=== PATIENT | female | born 1980 | race Caucasian/White ===

== ENCOUNTER 2016-07-20 21:48 | Emergency (ER) | payer OTHER ==
[~2016-07-20 21:48] MED LIST: OB COMPLETE/DHA PO
--- NOTE | 2016-07-21 00:37 | ED NURSING NOTES ---
Clinical Report - Nurses [facility] [address] [place] [address] 07/20/2016 21:49 Patient: GERALDINE summer TRIAGE Triage time 22:07. Acuity: LEVEL 3. Chief Complaint: CHEST PAIN and (Onset: 1 hour ago, began again when standing; states she has been having dizzy spells the past couple of days. Describes dizziness as "when I look up the room is moving but it comes and goes it does not last."). Alert. No acute distress. SEPSIS SCREEN: Sepsis Screen: negative. Negative (no infection suspected/documented). --22:12 Hadley Stearns R.N. 22:09 07/20/16. BP: 116/81 (regular adult cuff) taken on the left arm, via an automated monitor, while lying. HR: 81 (normal rate). RR: 16 (regular, unlabored and normal). O2 saturation: 96% on room air. Temp: 98.1 F (oral). Pain level now: 12/06. --22:12 Hadley Stearns R.N. Weight: 72.5 kg stated. Height/Length: 63 inches Per Patient. BMI: 28.3. --22:09 Hadley Stearns R.N. Medications None. --22:11 Hadley Stearns R.N. Allergies No Known Drug Allergy. --22:11 Hadley Stearns R.N. Medication/allergy information source: the patient. --22:12 Hadley Stearns R.N. History Arrived by private vehicle. Historian: patient. Accompanied by daughter. Primary physician (None). This started today. She has had central chest pain (Described as a "cramping" pain). Denies radiation of chest pain to the left arm, right arm, neck or back. No associated nausea or vomiting. No chills, fever, sweating episodes or difficulty breathing. She has not had fatigue. Denies muscle aches. 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 PAST MEDICAL HX: Last normal menstrual period- 27 days ago. SOCIAL HX: Never smoker. No alcohol use or drug use. She has not traveled outside the [place] The patient was not exposed to MRSA. No infectious disease exposure. ABUSE ASSESSMENT: Abuse assessment: The patient was asked "Do you feel safe in your home?" and "Has anyone hurt you or threatened to hurt you?". No report of abuse. SELF HARM ASSESSMENT: A self harm assessment was performed. The patient answered "no" to the question "Do you have thoughts of harming or killing yourself?" and "Have you recently had thoughts about harming or killing others?". FALL RISK ASSESSMENT: Fall risk assessment completed. No fall risk identified. NUTRITIONAL RISK ASSESSMENT: The nutritional risk assessment revealed no deficiencies. FUNCTIONAL ASSESSMENT: Functional assessment: no impairments noted. LEARNING NEEDS ASSESSMENT: The learning needs assessment revealed no barriers. SKIN INTEGRITY ASSESSMENT: Skin integrity risk assessment completed. No skin integrity risk identified. --22:12 Hadley Stearns R.N. PROBLEMS: Chest Pain of GI Origin. Tubal . Anxiety Reaction. PVC - Premature Venticular Complex(s). UTI - Urinary Tract Infection. . --22:11 Hadley Stearns R.N. ADDITIONAL SURGERIES: Endoscopy. Laparoscopy. --22:11 Hadley Stearns R.N. Assessment GENERAL / NEURO / PSYCH: Alert. Oriented X 4. Appears in no acute distress. [place] Coma Scale: 15- eyes open spontaneously (4); best verbal response- oriented x 4 (5); best motor response- obeys commands (6). Patient appears calm and cooperative. RESPIRATORY: Respirations not labored. SKIN: Skin is warm and dry. --22:12 Hadley Stearns R.N. Interventions ID band on patient. EKG time: (2200). EKG was ordered, performed by a tech and shown to the ED physician. To treatment room. --22:12 Hadley Stearns R.N. NURSING PROGRESS NOTES The initial plan of care for this patient has been created This plan of care was discussed with the patient. tool specialist, pulse oximeter and NIBP monitor placed on patient; weight inspector- Lead II. Patient gowned. Reassurance given to the patient. Two patient identifiers checked. Call light placed in reach. Side rails up x 1. Bed placed in lowest position. Brakes of bed on. Patient ready for evaluation- ED physician notified. --22:12 Hadley Stearns R.N. 22:15 07/20/16. EKG time: (2200). EKG was performed by a tech and shown to the ED physician. --22:15 Josephmarianela Rachel 22:18 07/20/2016 Site #1 started via IV in the right antecubital space with an 20g angiocath, with aseptic technique and good blood return; one attempt. Blood drawn: rainbow set. Labeled in the presence of the patient and sent to the lab. Saline lock flushed with 10 mL saline. --22:18 Peg Mesa R.N. Patient ID band checked for patient name, birthdate and medical record number: patient confirmed. Instructions provided to collect clean catch urine and patient verbalized understanding urine collected with return of yellow-colored clear urine; sample sent to lab for urinalysis. Specimen labeled in the presence of the patient. The patient is calm and resting quietly. Overall patient status is improved- she states feels better. RESPIRATORY: Denies difficulty breathing. CVS: Denies chest pain. Normal sinus rhythm noted. Cardiac rhythm: normal sinus rhythm. Patient identifiers checked. Call light placed in reach. --22:36 Hilary Javier R.N. 23:01 07/20/16. BP: 98/60. HR: 84 (regular and normal rate). RR: 12. O2 saturation: 100% on room air. Pain level now: 0/10. --23:33 Hilary Javier R.N. Cardiac rhythm: normal sinus rhythm. Reassurance given. Call light placed in reach. --23:33 Hilary Javier R.N. 00:52 07/21/2016 Site #1 removed upon discharge. Catheter intact. Manual pressure and bandaid applied. --00:52 Hilary aJvier R.N. DISPOSITION / DISCHARGE Departure time: 0055 PM. Condition at departure: improved and stable. The goals identified in the patient's plan of care were met. No learning barriers present. Discharge instructions provided and reviewed with the patient. Activity restrictions (rest) reviewed. Patient verbalized understanding. Written instructions provided in Lebanese. No warning instructions, medication instructions, treatment instructions or referrals given to the patient. The patient was discharged by the physician. She was discharged home and accompanied by spouse. She left the Emergency Department ambulatory and via private vehicle. Patient driving. FALL RISK ASSESSMENT: Fall risk assessment completed. No fall risk identified. --00:51 Hilary Javier R.N. 00:45 07/21/16. BP: 98/53. HR: 74. RR: 12. O2 saturation: 100%. Temp: 97.4 F (oral). Pain level now: 0/10. --00:51 Hilary Javier R.N. Locked/Released at 07/21/2016 0:52 by Hilary Javier R.N.
--- NOTE | 2016-07-21 00:37 | ED ORDER SUMMARY ---
..... Patient: STEMICK, SUMMER D OrderSheet [facility] VisitID: [id number] [place] [address] 36y, F Registration Date/Time: 07/20/2016 ORDER SHEET Weight: 72.5 kg (stated) Allergies: No Known Drug Allergy GENERAL ORDERS: CBC w Diff Urgent (22:18 07/20/2016 SRoberts R.N. per protocol) (Ack 22:19 AMcQuoid ER Tech1) (22:37 EHassan R.N.) CMP Urgent (22:18 07/20/2016 SRoberts R.N. per protocol) (Ack 22:19 AMcQuoid ER Tech1) (22:37 EHassan R.N.) UA-Culture if indicated Urgent (22:18 07/20/2016 SRoberts R.N. per protocol) (Ack 22:19 AMcQuoid ER Tech1) (22:37 EHassan R.N.) EKG - ER Stat (22:19 07/20/2016 AMcQuoid ER Tech1 per protocol) (22:19 AMcQuoid ER Tech1) Troponin-I Urgent (23:45 07/20/2016 Brenton Harry) (Ack 23:51 JDeElena R.N.) (23:52 JDeElena R.N.) Chest 2V Urgent (00:22 07/21/2016 Brenton Harry) (Ack 0:24 AMcQuoid ER Tech1) (0:31 GUnger) MEDICATION ORDERS: IV FLUIDS: IV Saline Lock (22:18 07/20/2016 SRoberts R.N. per protocol) (22:18 SRoberts R.N.) ORDER SHEET NOTES: [Electronically signed by Hilary Javier R.N. (00:52 07/21/2016)] [Electronically signed by Roby Gonzalez Dr. (04:14 07/23/2016)] [Electronically locked/signed by Hilary Javier R.N. (00:52 07/21/2016)]
--- NOTE | 2016-07-21 00:37 | ED ORDER SUMMARY ---
..... Patient: STEMICK, SUMMER D OrderSheet [facility] VisitID: [id number] [place] [address] 36y, F Registration Date/Time: 07/20/2016 ORDER SHEET Weight: 72.5 kg (stated) Allergies: No Known Drug Allergy GENERAL ORDERS: CBC w Diff Urgent (22:18 07/20/2016 SRoberts R.N. per protocol) (Ack 22:19 AMcQuoid ER Tech1) (22:37 EHassan R.N.) CMP Urgent (22:18 07/20/2016 SRoberts R.N. per protocol) (Ack 22:19 AMcQuoid ER Tech1) (22:37 EHassan R.N.) UA-Culture if indicated Urgent (22:18 07/20/2016 SRoberts R.N. per protocol) (Ack 22:19 AMcQuoid ER Tech1) (22:37 EHassan R.N.) EKG - ER Stat (22:19 07/20/2016 AMcQuoid ER Tech1 per protocol) (22:19 AMcQuoid ER Tech1) Troponin-I Urgent (23:45 07/20/2016 Brenton Harry) (Ack 23:51 JDeElena R.N.) (23:52 JDeElena R.N.) Chest 2V Urgent (00:22 07/21/2016 Brenton Harry) (Ack 0:24 AMcQuoid ER Tech1) (0:31 GUnger) MEDICATION ORDERS: IV FLUIDS: IV Saline Lock (22:18 07/20/2016 SRoberts R.N. per protocol) (22:18 SRoberts R.N.) ORDER SHEET NOTES: [Electronically signed by Hilary Javier R.N. (00:52 07/21/2016)] [Electronically signed by Roby Gonzalez Dr. (04:14 07/23/2016)] [Electronically locked/signed by Hilary Javier R.N. (00:52 07/21/2016)]
--- NOTE | 2016-07-21 00:37 | ED CLINICAL REPORT ---
Clinical Report - Physicians/Mid Levels [facility] [address] [place] [address] 07/20/2016 21:49 Patient: GERALDINEsummer Time Seen: 0000. Arrived- By private vehicle. Historian- patient. HISTORY OF PRESENT ILLNESS Chief Complaint: CHEST PAIN. At its maximum, severity described as moderate. When seen in the E.D., it was gone. Modifying factors. Not worsened by anything. Not relieved by anything. This started today and is still present but is better now. It was abrupt in onset and has been intermittent but is not gone now. Onset during sleep. It is described as cramping and it is described as located in the central chest area. No radiation. No nausea, vomiting, difficulty breathing or diaphoresis. No additional chest pain. (Got done eating about 40 minutes prior. Pain lasted for several seconds then resolved. Had a few episodes of these.). Similar symptoms previously: None. Recent medical care: Not recently seen/assessed. REVIEW OF SYSTEMS No fever or chills. All systems otherwise negative, except as recorded above. PAST HISTORY See nurses notes. Denies the following risk factors for DVT/PE - history of DVT and pulmonary embolism, recent surgery, recent PR and congestive heart failure. Denies the following risk factors for DVT/PE - cancer, clotting disorder, estrogens, obesity and immobility. Denies the following risk factors for DVT/PE - vena cava filter. SOCIAL HISTORY Never smoker. No alcohol use or drug use. No recent travel. Is a local resident. FAMILY HISTORY No history of heart disease. No family history of premature onset heart disease. ADDITIONAL NOTES The nursing notes have been reviewed. PHYSICAL EXAM Vital Signs: 07/20/2016 22:09 BP: 116/81. HR: 81. RR: 16. O2 saturation: 96%. Temp: 98.1 F. Pain level now: 8/10. Blood pressure normal. Oxygen saturation normal. Appearance: Alert. Oriented X3. No acute distress. Eyes: Pupils equal, round and reactive to light. Eyes normal inspection. ENT: Ears normal. Nose normal. Pharynx normal. Neck: Normal inspection. Neck supple. CVS: Normal heart rate and rhythm. Heart sounds normal. Pulses normal. Respiratory: No respiratory distress. Breath sounds normal. Chest nontender. Abdomen: Soft and nontender. Bowel sounds normal. Skin: Skin warm and dry. Normal skin color. No rash. Normal skin turgor. Extremities: Extremities exhibit normal ROM. No lower extremity edema. LABS, X-RAYS, AND EKG EKG: No acute ischemia. Normal sinus rhythm. Normal P waves. Normal VAISHNAVI. Normal QRS complex. Normal axis. Normal ST and T waves, QT and QTc. The study has been interpreted contemporaneously. The study has been independently viewed by me. The EKG appears to be a good tracing. Chest X-ray: (PROCEDURE: XR CHEST 2 VIEW INDICATION: CHEST PAIN TECHNIQUE: PA and lateral views. COMPARISON: None. FINDINGS: Lungs are clear. Heart and mediastinum are normal. Thorax is normal. IMPRESSION: 1. Negative chest.). Laboratory Tests: UA-Culture if indicated: (JOSELINE: 07/20/2016 22:30) ( [facility] 07/20/2016 22:44) Final results Test Result Flag Units (Reference) URINE COLOR YELLOW URINE APPEARANCE CLEAR URINE GLUCOSE NEGATIVE (NEGATIVE) URINE BILIRUBIN NEGATIVE (NEGATIVE) URINE KETONE NEGATIVE (NEGATIVE) URINE SPECIFIC GRAVITY <= 1.005 L (1.010-1.030) URINE PH 7.0 (5.0-8.0) URINE PROTEIN NEGATIVE (NEGATIVE) URINE UROBILINOGEN 0.2 EU/dL (0.2-1.0) URINE NITRITE NEGATIVE (NEGATIVE) URINE BLOOD NEGATIVE (NEGATIVE) URINE LEUK ESTERASE NEGATIVE (NEGATIVE) URINE RBC NONE SEEN rbc/hpf (0-1) URINE WBC 0-1 wbc/hpf (0-1) URINE EPITHELIAL CELLS 3-5 EPI/hpf (0-5) URINE BACTERIA TRACE (<1+) (NONE SEEN) URINE COMMENT CULT NOT INDICATED URINE CULTURES ARE SET-UP BASED ON THE FOLLOWING CRITERIA:POSITIVE NITRITEPOSITIVE LEUKOCYTE ESTERASEGREATER THAN 10 WHITE BLOOD CELLSMODERATE (2+) OR GREATER BACTERIA CBC w Diff: (JOSELINE: 07/20/2016 21:30) ( [facility] 22:25) Final results Test Result Flag Units (Reference) WHITE BLOOD COUNT 7.7 K/uL (4.5-11.5) RED BLOOD COUNT 4.65 M/uL (4.00-5.20) HEMOGLOBIN 14.3 gm/dL (12.0-16.0) HEMATOCRIT 42.4 % (36.0-46.0) MEAN CELL VOLUME 91 fL (80-100) MEAN CORPUSCULAR HGB 31 pg (26-34) MEAN CORPUSCULAR HGB CONC 34 g/dL (31-37) RED CELL DISTRIBUTION WIDTH 12.4 % (11.6-14.8) PLATELET COUNT 248 K/uL (150-400) NEUTROPHIL % 49.3 L % (50-75) LYMPH % 41.3 H % (25-40) MONO % 8.4 % (3-14) EOSINOPHIL % 0.7 % (0-4) BASOPHIL % 0.3 % (0-2) Troponin-I: (JOSELINE: 07/20/2016 23:20) ( [facility] 07/21/2016 00:04) Final results Test Result Flag Units (Reference) TROPONIN I <0.05 L ng/mL (0.00-1.5) TROPONIN REFERENCE RANGE:<0.1 NEGATIVE0.1-1.5 INDETERMINANT>1.5 POSITIVE CMP: (JOSELNIE: 07/20/2016 21:30) ( [facility] 22:38) Final results Test Result Flag Units (Reference) GLUCOSE 98 mg/dL (70-110) BUN 16 mg/dL (7-18) CREATININE 0.8 mg/dL (0.6-1.3) Estimated GFR >60 mL/min Estimated GFR- >60 mL/min Note: Persistent reduction over 3 months in eGFR<60 mL/min/1.73 m2 defines CKD. Patients with eGFR values>=60 mL/min/1.73 m2 may also have CKD if evidence ofpersistent proteinuria. Additional information may be foundat www.kidney.org. SODIUM 138 mmol/L (136-145) POTASSIUM 3.9 mmol/L (3.5-5.1) CHLORIDE 101 mmol/L (98-107) CARBON DIOXIDE 28 mmol/L (21-32) CALCIUM 9.4 mg/dL (8.5-10.1) TOTAL PROTEIN 8.2 g/dL (6.4-8.2) ALBUMIN 4.2 g/dL (3.3-5.0) BILIRUBIN, TOTAL 0.4 mg/dL (0.0-1.0) ALKALINE PHOSPHATASE 75 U/L (46-116) AST (SGOT) 13 L U/L (15-37) ALT (SGPT) 20 U/L (12-78) . PROGRESS AND PROCEDURES Course of Care: The patient is a pleasant 36-year-old female with past medical history presenting for evaluation of chest pain. Because of the patient's chest pain, patient be evaluated with EKG and chest x-ray as well as laboratory studies. Patient was initially evaluated by the mid-level provider. At the change of shift, and taken over care. I have introduced myself to the patient and performed my own physical examination and history. Agree with the assessment and plan. Laboratory studies and chest x-ray have been added to the patient's workup. Patient's workup was noted to be negative. Patient with beta chest x-ray EKG and laboratory studies. Patient is resting in bed and in no acute distress. Patient has no significant risk factors for acute myocardial infarction. Patient is currently PE RC negative. Do not feel further workup for pulmonary embolism is required at this time. Because the patient's second workup here in the emergency department, do not feel patient is admitted to the hospital require further emergency department workup/evaluation. I discussion patient in regards to her workup here in emergency department including diagnosis, home care, follow-up, and return precautions. All questions have been answered. The patient expressed understanding of these instructions and was agreeable to them. CLINICAL IMPRESSION 07/20/2016 23:01 BP: 98/60. HR: 84. RR: 12. O2 saturation: 100%. Pain level now: 0/10. 07/20/2016 22:09 BP: 116/81. HR: 81. RR: 16. O2 saturation: 96%. Temp: 98.1 F. Pain level now: 8/10. Blood pressure normal. Oxygen saturation normal. Atypical chest pain .12 lead EKG performed. (acute substernal). INSTRUCTIONS Warnings: GENERAL WARNINGS: Return or contact your physician immediately if your condition worsens or changes unexpectedly, if not improving as expected, or if other problems arise. SPECIFICALLY, return if you develop chest, neck, jaw, shoulder, arm, or back pain, difficulty breathing, a fluttering sensation in your chest, lightheadedness, fainting, excessive fatigue, or sudden sweating. Your Current Medications: CONTINUE TAKING THE FOLLOWING MEDICATIONS: None*. OTC Medications: Acetaminophen (available over the counter): take according to label instructions. Motrin (available over the counter): take according to label instructions. Follow-up: Return to the emergency department as needed. Follow up with your doctor in three days. Reason for referral: recheck today's concerns. Summary of care provided to patient via paper. Screening today revealed the patient's blood pressure to be in the normal range. The patient should follow up with a primary care provider for blood pressure management. Understanding of the discharge instructions verbalized by patient. (Electronically signed by Roby Gonzalez Dr. 07/23/2016 4:14)
--- NOTE | 2016-07-21 00:37 | ED NURSING NOTES ---
Clinical Report - Nurses [facility] [address] [place] [address] 07/20/2016 21:49 Patient: GERALDINE summer TRIAGE Triage time 22:07. Acuity: LEVEL 3. Chief Complaint: CHEST PAIN and (Onset: 1 hour ago, began again when standing; states she has been having dizzy spells the past couple of days. Describes dizziness as "when I look up the room is moving but it comes and goes it does not last."). Alert. No acute distress. SEPSIS SCREEN: Sepsis Screen: negative. Negative (no infection suspected/documented). --22:12 Hadley Stearns R.N. 22:09 07/20/16. BP: 116/81 (regular adult cuff) taken on the left arm, via an automated monitor, while lying. HR: 81 (normal rate). RR: 16 (regular, unlabored and normal). O2 saturation: 96% on room air. Temp: 98.1 F (oral). Pain level now: 12/06. --22:12 Hadley Stearns R.N. Weight: 72.5 kg stated. Height/Length: 63 inches Per Patient. BMI: 28.3. --22:09 Hadley Stearns R.N. Medications None. --22:11 Hadley Stearns R.N. Allergies No Known Drug Allergy. --22:11 Hadley Stearns R.N. Medication/allergy information source: the patient. --22:12 Hadley Stearns R.N. History Arrived by private vehicle. Historian: patient. Accompanied by daughter. Primary physician (None). This started today. She has had central chest pain (Described as a "cramping" pain). Denies radiation of chest pain to the left arm, right arm, neck or back. No associated nausea or vomiting. No chills, fever, sweating episodes or difficulty breathing. She has not had fatigue. Denies muscle aches. Treatment MACHINE ADJUSTER: None. PAST MEDICAL HX: Last normal menstrual period- 27 days ago. SOCIAL HX: Never smoker. No alcohol use or drug use. She has not traveled outside the [place] The patient was not exposed to MRSA. No infectious disease exposure. ABUSE ASSESSMENT: Abuse assessment: The patient was asked "Do you feel safe in your home?" and "Has anyone hurt you or threatened to hurt you?". No report of abuse. SELF HARM ASSESSMENT: A self harm assessment was performed. The patient answered "no" to the question "Do you have thoughts of harming or killing yourself?" and "Have you recently had thoughts about harming or killing others?". FALL RISK ASSESSMENT: Fall risk assessment completed. No fall risk identified. NUTRITIONAL RISK ASSESSMENT: The nutritional risk assessment revealed no deficiencies. FUNCTIONAL ASSESSMENT: Functional assessment: no impairments noted. LEARNING NEEDS ASSESSMENT: The learning needs assessment revealed no barriers. SKIN INTEGRITY ASSESSMENT: Skin integrity risk assessment completed. No skin integrity risk identified. --22:12 Hadley Stearns R.N. PROBLEMS: Chest Pain of GI Origin. Tubal . Anxiety Reaction. PVC - Premature Venticular Complex(s). UTI - Urinary Tract Infection. . --22:11 Hadley Stearns R.N. ADDITIONAL SURGERIES: Endoscopy. Laparoscopy. --22:11 Hadley Stearns R.N. Assessment GENERAL / NEURO / PSYCH: Alert. Oriented X 4. Appears in no acute distress. [place] Coma Scale: 15- eyes open spontaneously (4); best verbal response- oriented x 4 (5); best motor response- obeys commands (6). Patient appears calm and cooperative. RESPIRATORY: Respirations not labored. SKIN: Skin is warm and dry. --22:12 Hadley Stearns R.N. Interventions ID band on patient. EKG time: (2200). EKG was ordered, performed by a tech and shown to the ED physician. To treatment room. --22:12 Hadley Stearns R.N. NURSING PROGRESS NOTES The initial plan of care for this patient has been created This plan of care was discussed with the patient. last code striper, pulse oximeter and NIBP monitor placed on patient; square dance caller- Lead II. Patient gowned. Reassurance given to the patient. Two patient identifiers checked. Call light placed in reach. Side rails up x 1. Bed placed in lowest position. Brakes of bed on. Patient ready for evaluation- ED physician notified. --22:12 Hadley Stearns R.N. 22:15 07/20/16. EKG time: (2200). EKG was performed by a tech and shown to the ED physician. --22:15 Josephmarianela Rachel 22:18 07/20/2016 Site #1 started via IV in the right antecubital space with an 20g angiocath, with aseptic technique and good blood return; one attempt. Blood drawn: rainbow set. Labeled in the presence of the patient and sent to the lab. Saline lock flushed with 10 mL saline. --22:18 Peg Mesa R.N. Patient ID band checked for patient name, birthdate and medical record number: patient confirmed. Instructions provided to collect clean catch urine and patient verbalized understanding urine collected with return of yellow-colored clear urine; sample sent to lab for urinalysis. Specimen labeled in the presence of the patient. The patient is calm and resting quietly. Overall patient status is improved- she states feels better. RESPIRATORY: Denies difficulty breathing. CVS: Denies chest pain. Normal sinus rhythm noted. Cardiac rhythm: normal sinus rhythm. Patient identifiers checked. Call light placed in reach. --22:36 Hilary Javier R.N. 23:01 07/20/16. BP: 98/60. HR: 84 (regular and normal rate). RR: 12. O2 saturation: 100% on room air. Pain level now: 0/10. --23:33 Hilary Javier R.N. Cardiac rhythm: normal sinus rhythm. Reassurance given. Call light placed in reach. --23:33 Hilary Javier R.N. 00:52 07/21/2016 Site #1 removed upon discharge. Catheter intact. Manual pressure and bandaid applied. --00:52 Hilary Javier R.N. DISPOSITION / DISCHARGE Departure time: 0055 PM. Condition at departure: improved and stable. The goals identified in the patient's plan of care were met. No learning barriers present. Discharge instructions provided and reviewed with the patient. Activity restrictions (rest) reviewed. Patient verbalized understanding. Written instructions provided in [place]. No warning instructions, medication instructions, treatment instructions or referrals given to the patient. The patient was discharged by the physician. She was discharged home and accompanied by spouse. She left the Emergency Department ambulatory and via private vehicle. Patient driving. FALL RISK ASSESSMENT: Fall risk assessment completed. No fall risk identified. --00:51 Hilary Javier R.N. 00:45 07/21/16. BP: 98/53. HR: 74. RR: 12. O2 saturation: 100%. Temp: 97.4 F (oral). Pain level now: 0/10. --00:51 Hilary Javier R.N. Locked/Released at 07/21/2016 0:52 by Hilary Javier R.N.
--- NOTE | 2016-07-21 04:12 | DIAGNOSTIC IMAGING REPORT ---
PROCEDURE: XR CHEST 2 VIEW INDICATION: CHEST PAIN TECHNIQUE: PA and lateral views. COMPARISON: None. FINDINGS: Lungs are clear. Heart and mediastinum are normal. Thorax is normal. IMPRESSION: 1. Negative chest.
--- NOTE | 2016-07-23 04:15 | ED MAR SUMMARY ---
..... Medication Administration Record [facility] [address], [place] [id number] Patient: GERALDINE ALBERTA Toni Visit ID: [id number] 36y, F Weight: 72.5 kg Height/Length: 63 in BMI: 28.3 ALLERGIES: No Known Drug Allergy
--- NOTE | 2016-07-23 04:15 | ED MAR SUMMARY ---
..... Medication Administration Record [facility] [address] [place], [place] [id number] Patient: GERALDINE ALBERTA Toni Visit ID: [id number] 36y, F Weight: 72.5 kg Height/Length: 63 in BMI: 28.3 ALLERGIES: No Known Drug Allergy
--- NOTE | 2016-07-23 04:15 | ED DISCHARGE INSTRUCTIONS ---
Patient: GERALDINE SUMMER D General Instructions [facility] VisitID: [id number] [place] [address] 36y, F Registration Date/Time: 07/20/2016 07/20/2016 23:01 BP: 98/60. HR: 84. RR: 12. O2 saturation: 100%. Pain level now: 0/10. 07/20/2016 22:09 BP: 116/81. HR: 81. RR: 16. O2 saturation: 96%. Temp: 98.1 F. Pain level now: 8/10. Blood pressure normal. Oxygen saturation normal. Atypical chest pain .12 lead EKG performed. (acute substernal). INSTRUCTIONS Warnings: GENERAL WARNINGS: Return or contact your physician immediately if your condition worsens or changes unexpectedly, if not improving as expected, or if other problems arise. SPECIFICALLY, return if you develop chest, neck, jaw, shoulder, arm, or back pain, difficulty breathing, a fluttering sensation in your chest, lightheadedness, fainting, excessive fatigue, or sudden sweating. Your Current Medications: CONTINUE TAKING THE FOLLOWING MEDICATIONS: None*. OTC Medications: Acetaminophen (available over the counter): take according to label instructions. Motrin (available over the counter): take according to label instructions. Follow-up: Return to the emergency department as needed. Follow up with your doctor in three days. Reason for referral: recheck today's concerns. Summary of care provided to patient via paper. Screening today revealed the patient's blood pressure to be in the normal range. The patient should follow up with a primary care provider for blood pressure management. Understanding of the discharge instructions verbalized by patient. ADDITIONAL INFORMATION Chest Pain, Uncertain Cause Chest pain can happen for a number of reasons. Sometimes the cause can not be determined. If yourcondition does not seem serious, and your pain does not appear to be coming from your heart, your doctor may recommend watching it closely. Sometimes the signs of a serious problem take more time to appear. Therefore, watch for the warning signs listed below. Home care After your visit, follow these recommendations: Rest today and avoid strenuous activity. Take any prescribed medicine as directed. Follow-up care Follow up with your doctor or this facility as instructed or if you do not start to feel better within 24 hours. Call 911 Get immediate medical attention if any of the following occur: A change in the type of pain: if it feels different, becomes more severe, lasts longer, or begins to spread into your shoulder, arm, neck, jaw or back Shortness of breath or increased pain with breathing Weakness, dizziness, or fainting Rapid heart beat Get prompt medical attention Call your doctor right away if any of the following occur: Cough with dark colored sputum (phlegm) or blood Fever of 100.4F(38C) or higher, or as directed by your health care provider Swelling, pain or redness in one leg You have been given the following additional information: Chest Pain, Uncertain Cause (Electronically signed by Roby Gonzalez Dr. 07/23/2016 4:14)
--- NOTE | 2016-07-23 04:15 | ED MED RECONCILIATION SUMMARY ---
Patient: ALBERTA CHANDLER Medication Reconciliation Report [facility] VisitID: [id number] [place] [address] 36y, F Registration Date/Time: 07/20/2016 Weight: 72.5 kg Height/Length: 63 in. BMI: 28.3 ALLERGIES: No Known Drug Allergy The patient's Home Medications are listed below: NONE. The source(s) of the original Home Medication information: patient The following Medications were given to the patient in the Emergency Department: None. The following Medications were prescribed to the patient: Acetaminophen (available over the counter): take according to label instructions. -- Roby Gonzalez Dr. Motrin (available over the counter): take according to label instructions. -- Roby Gonzalez Dr.
--- NOTE | 2016-07-23 04:15 | ED MED RECONCILIATION SUMMARY ---
Patient: ALBERTA CHANDLER Medication Reconciliation Report [facility] VisitID: [id number] [place] [address] 36y, F Registration Date/Time: 07/20/2016 Weight: 72.5 kg Height/Length: 63 in. BMI: 28.3 ALLERGIES: No Known Drug Allergy The patient's Home Medications are listed below: NONE. The source(s) of the original Home Medication information: patient The following Medications were given to the patient in the Emergency Department: None. The following Medications were prescribed to the patient: Acetaminophen (available over the counter): take according to label instructions. -- Roby Gonzalez Dr. Motrin (available over the counter): take according to label instructions. -- Roby Gonzalez Dr.
== END 2016-07-20 21:49 | disposition home or self-care (01) ==
LOC: ED SRH 21:48
DX: R07.89 Other chest pain (principal)
CPT/HCPCS: 90004; 90100; 90616; 95059